=== PATIENT | male | born 1980 | race African-American/Black ===

== ENCOUNTER 2021-06-20 16:17 | Emergency (ER) | payer SELFPAY ==
[~2021-06-20] VITALS: Ht 170.2 cm; Wt 73.0 kg
[2021-06-20 16:48] VITALS: BP 145/100
[2021-06-20 17:29] LABS: BASOPHILS % 0.5 % (0.0-2.0); HEMATOCRIT. 34.6 % (42.0-52.0); HEMOGLOBIN. 11.2 g/dL (14.0-18.0); LYMPHOCYTES % 21.6 % (20.0-50.0); MEAN CORPUSCULAR HEMOGLOBIN 20.3 pg (28.0-32.0); MEAN CORPUSCULAR VOLUME 62.7 fL (80.0-94.0); MEAN PLATELET VOLUME 7.2 fl (7.4-10.4); MONOCYTES % 8.7 % (2.0-8.0); NEUTROPHILS % 67.2 % (40.0-76.0); PLATELET 543 x1000/uL (130-400); RED BLOOD CELL COUNT 5.51 mill/uL (4.7-6.1); RED CELL DISTRIBUTION WIDTH 16.1 % (11.6-14.6)
[2021-06-20 17:33] LABS: CHLORIDE 107 mEq/L (98-107)
[2021-06-20 17:52] LABS: PLATELET ESTIMATE INCREASED
[2021-06-20] MEDS ORDERED: DIPHENHYDRAMINE 50MG CAPSULE PO ONE (20:30)
[2021-06-20] MEDS ORDERED: PREDNISONE 20MG TABLET PO ONE (20:30)
[2021-06-20] MEDS ORDERED: FAMOTIDINE 20MG TABLET PO ONE (20:30)
[2021-06-20] MEDS ORDERED: DIPH25CA83 PO (21:29)
[2021-06-20] MEDS ORDERED: P50 MT (21:29)
[2021-06-20] MEDS ORDERED: FAMO-135 MT (21:29)
== END 2021-06-20 21:42 | disposition home or self-care (01) ==
LOC: ER 16:17
DX: R21 Rash and other nonspecific skin eruption (principal); M67.48 Ganglion, other site
CPT/HCPCS: 36415; 80048; 85025; 99283; J7512; Q0163